=== PATIENT | female | born 1955 | race Caucasian/White ===

== ENCOUNTER → 2021-01-15 | Day surgery (SDC) | payer MEDICARE, OTHER ==
[2021-01-11 11:21] LABS: BASOPHILS # (AUTO) 0.1 (0.0-0.1); BASOPHILS % 0.8 % (0.0-1.0); EOSINOPHILS # (AUTO) 0.2 (0.0-0.4); EOSINOPHILS % 1.9 % (0.0-6.0); HEMOGLOBIN 12.5 g/dL (12.0-16.0); LYMPHOCYTES # (AUTO) 2.8 (1.0-3.2); LYMPHOCYTES % 31.3 % (18.0-39.1); MEAN CORPUSCULAR HGB CONC 32.1 g/dL (31-35); MEAN CORPUSCULAR VOLUME 87.2 fL (81-99); MONOCYTES # (AUTO) 0.5 (0.2-0.8); MONOCYTES % 5.3 % (4.4-11.3); NEUTROPHILS # (AUTO) 5.3 (2.1-6.9); NEUTROPHILS % 59.3 % (38.7-80.0); PLATELET COUNT 308 x10e3/uL (140-360); RED BLOOD COUNT 4.47 x10e6/uL (3.6-5.1); RED CELL DISTRIBUTION WIDTH 14.6 % (11.7-14.4)
[~2021-01-15] MED LIST: ASPIRIN81 MG PO; ATENOLOL50 MG PO; CLARITIN-D 241 EACH PO; CO Q10100 MG PO; ESTER-C 1,0001 EACH PO; FENOFIBRATE145 MG PO; FENTANYL CITRATE/PF 100MCG/2 ML INJ ONE; FLONASE ALLERG9.9 ML INH; HYGROTON25 MG PO; HYOSCYAMINE SULFATE 0.5 MG/ML INJ ONE; LIDOCAINE HCL 2% LOCAL INJ 5 ML SDV VIAL INJ ONE; LIPITOR10 MG PO; METFORMIN HCL500 M2 PO; MIDAZOLAM HCL 2 MG/2 ML VIAL ONE; NEXIUM40 MG PO; NIACIN ER500 MG PO; PROPOFOL IV EMULSION 10 MG/ML 20 ML VIAL ONE; SERTRALINE HCL50 MG PO; TURMERIC538 MG PO; VIT B12 PO; VIT D PO; VIT D2 PO; ZINC SULFATE220 MG PO
[2021-01-15 13:40] VITALS: BP 138/76
== END | disposition home or self-care (01) ==
LOC: OR 09:34
PROVIDERS: ATTEND Internal Medicine Gastroenterology
DX: K20.90 Esophagitis, unspecified without bleeding (principal); K44.9 Diaphragmatic hernia without obstruction or gangrene; K29.70 Gastritis, unspecified, without bleeding; D12.0 Benign neoplasm of cecum; K64.8 Other hemorrhoids; K57.30 Diverticulosis of large intestine without perforation or abscess without bleeding; K59.00 Constipation, unspecified; K21.9 Gastro-esophageal reflux disease without esophagitis; D12.3 Benign neoplasm of transverse colon; Z88.0 Allergy status to penicillin; Z86.010 Personal history of colon polyps; K59.09 Other constipation; Z68.30 Body mass index [BMI] 30.0-30.9, adult; Z01.810 Encounter for preprocedural cardiovascular examination; Z01.812 Encounter for preprocedural laboratory examination; Z20.822 Contact with and (suspected) exposure to COVID-19; Z72.0 Tobacco use
CPT/HCPCS: 36415 ×2; 43239; 45380; 45385; 82948; 85025; 88305; 88312; 93005; J1980; J2001; J2704; U0002; 45378; 45384

== ENCOUNTER → 2021-02-21 | Outpatient (CLI) | payer MEDICARE, OTHER ==
[~2021-02-21] MED LIST changes: -FENTANYL CITRATE/PF 100MCG/2 ML INJ ONE; -HYOSCYAMINE SULFATE 0.5 MG/ML INJ ONE; -LIDOCAINE HCL 2% LOCAL INJ 5 ML SDV VIAL INJ ONE; -MIDAZOLAM HCL 2 MG/2 ML VIAL ONE; -PROPOFOL IV EMULSION 10 MG/ML 20 ML VIAL ONE
== END ==
LOC: RAD 08:58
PROVIDERS: ATTEND Family Medicine
DX: J06.9 Acute upper respiratory infection, unspecified (principal); R06.02 Shortness of breath
CPT/HCPCS: 71046